=== PATIENT | female | born 1970 ===

== ENCOUNTER 2018-12-11 16:02 | Outpatient (CLI) | payer SELFPAY | END 2018-12-11 16:03 | disposition home or self-care (01) | LOC: C.CTH 16:02 | DX: G44.52 New daily persistent headache (NDPH) (principal); R06.00 Dyspnea, unspecified ==

== ENCOUNTER 2018-12-12 07:18 | Outpatient (CLI) | payer SELFPAY | END 2018-12-12 07:19 | disposition home or self-care (01) | LOC: C.LAB 07:18 | DX: Z00.00 Encounter for general adult medical examination without abnormal findings (principal) ==

== ENCOUNTER 2019-01-22 14:42 | Outpatient (CLI) | payer SELFPAY | END 2019-01-22 14:43 | disposition home or self-care (01) | LOC: C.MAMMO 14:43 ==